=== PATIENT | female | born 1960 | race Caucasian/White ===

== ENCOUNTER 2024-01-16 09:12 | Emergency (ER) | payer OTHER, SELFPAY ==
[2024-01-16 09:19] VITALS: BP 138/80
[2024-01-16 09:43] VITALS: BMI 24.8
--- NOTE | 2024-01-16 09:51 | ED.GENMED ---
History of Present Illness
General
Chief Complaint: Visual Problem
Source: patient
Time Seen by Provider: 01/16/24 09:31
History of Present Illness
History of Present Illness:
63-year-old female with past medical history of mitral valve prolapse, previous coronary artery spasm presenting to the emergency department for evaluation after around 7:30 AM while driving to work started to experience bilateral visual disturbance
which she described as if her vision were distorted and was not seen clearly, patient was able to pull her car over to the side of the road with the visual disturbance stopping after about 10 to 15 seconds but then proceeded to experience
palpitations, nausea and fatigue. Patient notes that the palpitations have since resolved but in the emergency department is still having the mild nausea and fatigue sensation. Denies any fevers, chills, rigors, chest pain, shortness of breath,
lower extremity edema. She notes about 1 month ago she had a neck simple fall resulting in head injury but has not had any residual neurologic symptoms. Denies any history of similar.
Past History
Past History
ED Past Medical History: Valvular disease and Other (Coronary vasospasm)
ED Past Surgical History: Other
Social History
Tobacco: Non-smoker
Alcohol: Occasional
Drug: None
Personal:
Living: with family
Employment: Employed
Review of Systems
Review of Systems
All Other Systems: ROS reviewed and negative except as documented in HPI and ROS
Phy Exam
Physical Exam
Physical Exam:
GENERAL: Alert , in no apparent distress
HEAD: NCAT
EYE: pupils equal and reactive, 4mm b/l, no visual field cuts
NECK: Supple
ENT: o/p clr, mmm.
CARDIAC: Bradycardic rate and rhythm .
LUNGS: Clear breath sounds bilaterally, no acute respiratory distress, no wheezes/rales/rhonchi
ABDOMEN: Soft, without focal tenderness, no r/g, no cvat
NEUROLOGICAL: Alert and oriented, no focal neuro deficits, MOBLEY x4, no sensory deficits, no ataxia, no dysmetria, no dysarthria/aphasia
SKIN: Warm and dry, skin intact.
MUSCULOSKELETAL: well perfused.
PSYCH: Normal and appropriate interaction.
Scores
Heart Failure Risk
Heart Failure Risk Score: Not Applicable
Heart Score for Chest Pain Patients
STEMI patient?: Not applicable
Withdrawal Assessment of Alcohol
Withdrawal Assessment Completed?: Not applicable
Course
Orders/Labs/Results
Orders:
Orders
01/16/24 09:19
ECG [Electrocardiogram (*1)] Urgent
Reason for Study: Palpitations
EKG- Treatment ONCE
01/16/24 09:35
0.9% Sodium Chloride 1000 ml [Nss] 1,000 ml IV BOLUS
HYDROmorphone [Dilaudid] 1 mg IV NOW STA
Ondansetron Injectable [Zofran] 4 mg IV NOW STA
01/16/24 10:01
Complete Blood Count/With Diff Urgent
Comprehensive Metabolic Panel Urgent
Magnesium Urgent
TSH Urgent
Troponin I Urgent
Abnormal Lab Results
01/16/24
10:01
Monocytes % 9.8 H %
(1.7-9.3)
BUN 25 H mg/dl
(7-17)
01/16/24 10:01
01/16/24 10:01
Vital Signs
Initial and Last Documented VS:
Initial Vital Signs
Temp Pulse Resp BP Pulse Ox
98.2 F 56 18 138/80 99
01/16/24 09:19 01/16/24 09:19 01/16/24 09:19 01/16/24 09:19 01/16/24 09:19
Last Documented Vital Signs
Temp Pulse Resp BP Pulse Ox
98.2 F 72 22 115/63 95
01/16/24 09:19 01/16/24 12:18 01/16/24 12:18 01/16/24 12:00 01/16/24 12:00
MDM/Problems Addressed
Differential Diagnosis Includes:
hypoglycemia, cardiac arrythmia, TIA considered however given b/l nature and rapidly fleeting symptoms I am less suspicious for this, electrolyte derangement, thyroid disorder
MDM/Problems Addressed:
63-year-old female presenting to the emergency department for evaluation after experiencing visual disturbance lasting about 10 to 15 seconds followed by palpitations, nausea and generalized fatigue. Palpitations now resolved. Still has residual
nausea and fatigue. She is well-appearing here, hemodynamically stable and in no acute distress. EKG done in triage shows a sinus bradycardia with no ischemic changes. Will check fingerstick glucose. Labs including cardiac markers ordered.
Patient to be kept on telemetry. Disposition pending
*Pulse Oximetry
Patient hypoxic: no
*EKG
Heart Rate: 48
Rate: bradycardiac
Rhythm: sinus
Guthrie: normal axis
Ischemia: no ischemia
*Kiln Repairer Interpretation
Rate: bradycardiac
Rhythm: sinus
*Critical Care Note
Total Time (30-74mins, 75-104mins- exclusive of procedures): Not Applicable
Data Reviewed
Review of Other/Old Records Reveals: Testing (Holter monitor worn in March 2022 which showed an asymptomatic Holter monitor without significant arrhythmia)
Source: patient
Patient Management
Escalation/DeEscalation of care consider admission/obs:
Patient feeling much improved following fluids. Remains hemodynamically stable. No evidence for dysrhythmia. Patient stable for discharge home. She will follow-up with primary care provider and cardiology as needed. Aware of return precautions
to the emergency department.
ED Attending Note
-
Portions of this chart may have been created with voice recognition software.� Occasional wrong word or��sound alike� substitutions may have occurred due to the inherent limitations of voice recognition software.
Discharge Plan
Departure
Patient Disposition: Home (Routine Discharge)
Date of Disposition: 01/16/24
Time of Disposition: 12:50
Patient with high blood pressure during this ER visit?: No
Discharge Problem:
Palpitations
Instructions: Palpitations ED
Prescriptions:
No Action
famotidine 40 MG tablet
40 mg PO DAILY Qty: 30 11RF
Patient Comments:
Pt says she took this med last about 2 months ago.
nitroglycerin 0.4 MG tablet, sublingual
0.4 mg sublingual [id number] PRN (Reason: chest pain) Qty: 1 1RF
ticagrelor [Brilinta] 90 MG tablet
90 mg PO BID Qty: 60 11RF
Patient Comments:
Pt thinks last time she took med was 2 months ago.
aspirin 81 MG tablet,delayed release (DR/EC)
81 mg PO DAILY Qty: 30 0RF
atorvastatin 10 MG tablet
10 mg PO QPM Qty: 0 0RF
Referrals:
Anna Min MD [Family Provider] -
Interventions
Interventions:
*Risk Screen - Suicide Last Done: 01/16/24 09:22
*General Assessment Last Done: 01/16/24 09:22
*Neglect/Abuse Screening Last Done: 01/16/24 09:43
ED- Fall Risk Assessment Last Done: 01/16/24 13:04
*ED COVID-19 Vaccine History Last Done: 01/16/24 09:43
*Nursing Disposition Last Done: 01/16/24 13:04
ED- Neurological Assessment Last Done: 01/16/24 09:43
ED Swallowing Screen Last Done: 01/16/24 09:43
Discharge Date and Time
Discharge Date/Time: 01/16/24 13:04
Print Language: SERBIAN
[2024-01-16] MEDS: NSS 1000 IV (10:00)
[2024-01-16 10:02] VITALS: BP 132/80
[2024-01-16 10:15] LABS: % Eosinophils 2.2 % (0-6); % Immature Granulocytes 0.2 % (0-0.5); % Lymphocytes 24.3 % (20.5-51.1); % Monocytes 9.8 % (1.7-9.3); % Neutrophils 62.5 % (42.2-75.2); Absolute Basophils 0.1 10^3/uL (0-0.2); Absolute Eosinophils 0.1 10^3/uL (0-0.7); Absolute Lymphocytes 1.5 10^3/uL (1.2-3.4); Absolute Monocytes 0.6 10^3/uL (0.1-0.6); Absolute Neutrophils 3.9 10^3/uL (1.4-6.5); Hematocrit 43.6 % (37.0-47.0); Mean Corp Hgb Conc. 34.4 g/dL (33.0-37.0); Mean Corpuscular Hgb 29.8 pg (27.0-31.0); Mean Corpuscular Volume 86.7 fL (81.0-99.0); Mean Platelet Volume 9.7 fL (7.4-10.4); Nucleated Red Blood Cells % 0 %; Platelet Count 291 10^3/uL (130-400); Red Blood Cell Count 5.03 10^6/uL (4.20-5.40); Red Cell Dist. Width 12.5 % (11.5-14.5); White Blood Cell Count 6.3 10^3/uL (4.8-10.8)
[2024-01-16 10:24] LABS: Albumin 4.6 g/dl (3.5-5.0)
[2024-01-16 10:35] LABS: ALT (SGPT) 35 U/L (0-35); AST (SGOT) 35 U/L (14-36); Alkaline Phosphatase 72 U/L (38-126); Blood Urea Nitrogen 25 mg/dl (7-17); Calcium 9.7 mg/dl (8.4-10.2); Carbon Dioxide 28 mmol/L (22-30); Chloride 103 mmol/L (98-107); Estimated Creatinine Clearance 69 ml/min; Glucose 96 mg/dl (70-99); Magnesium 2.1 mg/dl (1.6-2.3); Potassium 4.1 mmol/L (3.5-5.1); Sodium 144 mmol/L (135-145); Total Bilirubin 0.6 mg/dl (0.2-1.3); Total Protein 7.4 g/dl (6.3-8.2); eGFR > 60.00
[2024-01-16 10:38] LABS: Troponin I < 0.012 ng/ml
[2024-01-16 11:00] VITALS: BP 129/72
[2024-01-16 12:00] VITALS: BP 115/63
== END 2024-01-16 13:04 | disposition home or self-care (01) ==
LOC: EMR 09:12
PROVIDERS: Physician Assistant Medical; EMERGENCY PHYSICIAN Student in an Organized Health Care Education/Training Program; FAMILY PHYSICIAN Family Medicine
DX: R00.2 Palpitations (principal); I34.1 Nonrheumatic mitral (valve) prolapse
CPT/HCPCS: 99284; 96360; 80053; 83735; 84443; 84484; 85025; 93005